=== PATIENT | female | born 1990 | race African-American/Black ===

== ENCOUNTER 2018-02-23 10:53 | Emergency (ER) | payer MEDICAID ==
[~2018-02-23] VITALS: Ht 157.5 cm; Wt 67.0 kg
[2018-02-23 11:02] VITALS: BP 128/82
[2018-02-23] MEDS ORDERED: ACETAMINOPHEN 325MG TABLET PO ONE (11:30)
== END 2018-02-23 13:21 | disposition home or self-care (01) ==
LOC: ER 10:53
DX: O99.512 Diseases of the respiratory system complicating pregnancy, second trimester (principal); J01.90 Acute sinusitis, unspecified; Z3A.17 17 weeks gestation of pregnancy; Z91.018 Allergy to other foods
CPT/HCPCS: 81025; 87070; 87430; 87804; 99284

== ENCOUNTER 2019-04-15 23:41 | Emergency (ER) | payer MEDICAID ==
[~2019-04-15] VITALS: Ht 157.5 cm; Wt 64.0 kg
[2019-04-16] MEDS ORDERED: IBUPROFEN 600MG TABLET PO ONE (00:30)
[2019-04-16] MEDS ORDERED: ACETAMINOPHEN 500MG TABLET PO ONE (01:15)
[2019-04-16 01:30] LABS: HEMATOCRIT 37.4 % (36.0-48.0); HEMOGLOBIN 12.3 g/dL (12.0-16.0); MEAN CORPUSCULAR HEMOGLOBIN 27.1 pg (28.0-32.0); MEAN CORPUSCULAR VOLUME 82.1 fL (81.0-99.0); PLATELET 167 x1000/uL (130-400); RED BLOOD CELL COUNT 4.55 mill/uL (4.2-5.4); RED CELL DISTRIBUTION WIDTH 15.2 % (11.6-14.6)
[2019-04-16 01:37] LABS: CHLORIDE 107 mEq/L (98-107)
[2019-04-16 01:47] LABS: B-HCG QUANTITATIVE 331 mIU/mL (<3)
[2019-04-16 01:58] LABS: CLARITY URINE CLOUDY (CLEAR); COLOR URINE YELLOW (YELLOW)
[2019-04-16 01:59] LABS: KETONES URINE NEGATIVE (NEGATIVE); PROTEIN URINE 1+ (NEGATIVE)
[2019-04-16 02:03] LABS: LEUKOCYTE ESTERASE URINE 2+ (NEGATIVE); NITRITE URINE POSITIVE (NEGATIVE); OCCULT BLOOD URINE 1+ (NEGATIVE)
[2019-04-16] MEDS ORDERED: NITROFURANTOIN 100MG M/M CAPSULE PO SCH (02:45)
[2019-04-16 03:18] VITALS: BP 107/65
== END 2019-04-16 03:28 | disposition home or self-care (01) ==
LOC: ER 23:41
DX: O23.41 Unspecified infection of urinary tract in pregnancy, first trimester (principal); M79.10 Myalgia, unspecified site; O99.89 Other specified diseases and conditions complicating pregnancy, childbirth and the puerperium; M54.5 Low back pain; O99.411 Diseases of the circulatory system complicating pregnancy, first trimester; O26.891 Other specified pregnancy related conditions, first trimester; I63.9 Cerebral infarction, unspecified; Z3A.01 Less than 8 weeks gestation of pregnancy; Z91.018 Allergy to other foods
CPT/HCPCS: 36415; 76801; 80053; 81003; 81025; 84702; 85027; 86850; 86900; 86901; 87077; 87086; 87186; 99284; Z7610